=== PATIENT | female | born 1965 | race Caucasian/White ===

== ENCOUNTER 2018-06-26 11:23 | Emergency (ER) | END 2018-06-26 12:20 | disposition left against medical advice (07) ==

== ENCOUNTER 2019-01-03 08:26 | Emergency (ER) | payer SELFPAY ==
[~2019-01-03] VITALS: Ht 162.6 cm; Wt 71.2 kg
[~2019-01-03 08:26] MED LIST: BEN25 PO; CEPH-443 PO; HC30CR25 TOP
[2019-01-03 08:31] VITALS: Ht 162.6 cm; Wt 71.2 kg
[2019-01-03] MEDS ORDERED: ONDANSETRON 4 MG INJ IV STA (08:41)
[2019-01-03] MEDS ORDERED: morphine 4 MG/ML VIAL IV STA (08:41)
[2019-01-03] MEDS ORDERED: KETOROLAC 30 MG INJ IM STA (09:12)
[2019-01-03] MEDS ORDERED: IBUP-1542 PO (10:08)
[2019-01-03] MEDS ORDERED: NITR-58 PO (10:08)
[2019-01-03 10:44] VITALS: BP 119/85; PULSE 70; RESP 16
--- NOTE | 2019-01-03 13:06 | ERD ---
ER Documentation Chief Complaint Chief Complaint pt bib self with c/o back pain radiating to abd for a few days HPI Patient is a 53-year-old female with kidney stone who presents with lower back pain. The pain radiates to her pelvis. She has had this for the past 2 days. The pain comes and goes. The pain is worse with movement. She tried ibuprofen. She denies urinary symptoms. She has no fevers. Upon review of old medical records the patient one previous visit to the ER in 2018. She does not currently have a primary doctor. ROS All systems reviewed and are negative except as per history of present illness. Medications Home Meds Active Scripts Ibuprofen* (Motrin*) 600 Mg Tab, 600 MG PO Q6H PRN for PAIN AND OR ELEVATED TEMP, #30 TAB Prov:AYLIN PRUETT MD 01/03/19 Nitrofurantoin Monohyd Macrocr* (Macrobid*) 100 Mg Capsr, 100 MG PO BID for 7 Days, CAP Prov:AYLIN PRUETT MD 01/03/19 Diphenhydramine Hcl* (Benadryl*) 25 Mg Cap, 25 MG PO Q6, #30 CAP Prov:JESUS CASILLAS PA-C 06/26/18 Hydrocortisone* Topical (Hydrocortisone* Topical) 2.5%-28.3 Gm Cream..g., 1 APPLIC TOP BID, #1 TUB Prov:JESUS CASILLAS PA-C 06/26/18 Cephalexin* (Keflex*) 500 Mg Capsule, 500 MG PO QID for 7 Days, CAP Prov:JESUS CASILLAS PA-C 06/26/18 Allergies Allergies: Coded Allergies: No Known Allergy (Unverified , 01/03/19) PMhx/Soc History of Surgery: Yes () Anesthesia Reaction: No Hx Neurological Disorder: No Hx Respiratory Disorders: No Hx Cardiac Disorders: No Hx Psychiatric Problems: No Hx Miscellaneous Medical Probl: No Hx Alcohol Use: No Hx Substance Use: No Hx Tobacco Use: No Smoking Status: Never smoker FmHx Family History: diabetes Physical Exam Vitals Vital Signs Date Temp Pulse Resp B/P (MAP) Pulse Ox O2 O2 Flow FiO2 Time Delivery Rate 01/03/19 70 16 119/85 100 Room Air 10:44 (96) 01/03/19 97.8 71 18 142/87 100 08:31 (105) Physical Exam Const: No acute distress Head: Atraumatic Eyes: Normal Conjunctiva ENT: Normal External Ears, Nose and Mouth. Neck: Full range of motion. No meningismus. Resp: Clear to auscultation bilaterally Cardio: Regular rate and rhythm, no murmurs Abd: Soft, bilateral lower abdominal tenderness to palpation without rebound or guarding Skin: No petechiae or rashes Back: No midline or flank tenderness Ext: No cyanosis, or edema Neur: Awake and alert Psych: Normal Mood and Affect Result Diagram: 01/03/19 0901/03/19 09 Results 24 hrs Laboratory Tests Test 01/03/19 09:00 White Blood Count 5.5 10^3/ul Red Blood Count 4.96 10^6/ul Hemoglobin 14.9 g/dl Hematocrit 43.4 % Mean Corpuscular Volume 87.5 fl Mean Corpuscular Hemoglobin 30.0 pg Mean Corpuscular Hemoglobin Concent 34.3 g/dl Red Cell Distribution Width 11.5 % Platelet Count 201 10^3/UL Mean Platelet Volume 10.8 fl Immature Granulocytes % 0.400 % Neutrophils % 54.5 % Lymphocytes % 35.1 % Monocytes % 6.2 % Eosinophils % 2.9 % Basophils % 0.9 % Nucleated Red Blood Cells % 0.0 /100WBC Immature Granulocytes # 0.020 10^3/ul Neutrophils # 3.0 10^3/ul Lymphocytes # 1.9 10^3/ul Monocytes # 0.3 10^3/ul Eosinophils # 0.2 10^3/ul Basophils # 0.1 10^3/ul Nucleated Red Blood Cells # 0.0 10^3/ul Urine Color YELLOW Urine Clarity CLOUDY Urine pH 5.0 Urine Specific [place] 1.019 Urine Ketones NEGATIVE mg/dL Urine Nitrite NEGATIVE mg/dL Urine Bilirubin NEGATIVE mg/dL Urine Urobilinogen NEGATIVE mg/dL Urine Leukocyte Esterase 1+ [place]mit[place]/ul Urine Microscopic RBC 5 /HPF Urine Microscopic WBC 19 /HPF Urine Squamous Epithelial Cells MANY /HPF Urine Bacteria FEW /HPF Urine Mucus FEW /HPF Urine Hemoglobin NEGATIVE mg/dL Urine Glucose NEGATIVE mg/dL Urine Total Protein NEGATIVE mg/dl Sodium Level 143 mmol/L Potassium Level 4.1 mmol/L Chloride Level 107 mmol/L Carbon Dioxide Level 26 mmol/L Anion Gap 10 Blood Urea Nitrogen 17 mg/dl Creatinine 0.95 mg/dl Est Glomerular Filtrat Rate mL/min > 60 mL/min Glucose Level 99 mg/dl Calcium Level 10.0 mg/dl Total Bilirubin 0.4 mg/dl Direct Bilirubin 0.00 mg/dl Indirect Bilirubin 0.4 mg/dl Aspartate Amino Transf (AST/SGOT) 31 IU/L Alanine Aminotransferase (ALT/SGPT) 37 IU/L Alkaline Phosphatase 64 IU/L Total Protein 7.9 g/dl Albumin 4.5 g/dl Globulin 3.40 g/dl Albumin/Globulin Ratio 1.32 Lipase 84 U/L Current Medications Medications Dose Sig/Jimena Start Time Status Last (Trade) Ordered Route PRN Stop Time Admin Dose Reason Admin Morphine 4 mg ONCE STAT 01/03/19 DC Sulfate IV 08:41 (morphine) 01/03/19 08:42 Ondansetron 4 mg ONCE STAT 01/03/19 DC 01/03/19 HCl (Zofran IV 08:41 09:12 Inj) 01/03/19 08:42 Ketorolac 30 mg ONCE STAT 01/03/19 DC 01/03/19 Tromethamine IM 09:12 09:19 (Toradol) 01/03/19 09:13 Procedures/MDM CT abdomen pelvis read by radiology. Patient is a 53-year-old female who presents with abdominal pain. She was found to have acute cystitis. Other laboratory studies were basically normal. CT scan shows no sign of surgical process at this time. The patient was treated and feels better. She will be treated with antibiotics for 1 week. She can f ollow-up with the local clinics within 24-48 hours for reevaluation. At this point I doubt appendicitis, cholecystitis, pancreatitis, or bowel obstruction. Departure Diagnosis: Primary Impression: Cystitis Additional Impression: Abdominal pain Abdominal location: lower abdomen, unspecified Qualified Codes: R10.30 - Lower abdominal pain, unspecified Condition: Fair Patient Instructions: Abdominal Pain, Cystitis [facility] Usted se freedman hecho un examen mdico de control que le indica que no est en estevan condicin que requiera tratamiento urgente en el Departamento de Emergencia. Un estudio ms profundo y el tratamiento de guzman condicin pueden esperar sin ningn riesgo hasta que usted sea atendida/o en el consultorio de guzman mdico o estevan clnica. Es responsabilidad suya arreglar estevan nancy para el seguimiento del kathryn. MANEJO DE CONDICIONES NO URGENTES EN EL FUTURO 1) Si usted tiene un mdico de atencin primaria: Usted debera llamar a guzman mdico de atencin primaria antes de venir al departamento de emergencia. Despus de las horas de consultorio, guzman doctor o guzman asociado/a est disponible por telfono. El mdico o enfermero de demian en el servicio telefnico puede asesorarle por mayte medio para atender el problema, o kathryn contrario se puede programar estevan nancy. 2) Si usted no tiene un mdico de atencin primaria: Llame al mdico o clnica de referencia que aparece abajo lorri las horas de consultorio para hacer estevan nancy para que le vean. CLINICAS: [facility] [phone] [facility] [phone] [id number] [facility]. [facility] [phone] [address] [facility]. [place] [address] [phone] [facility]. [place] [phone] [facility]. [phone] [address] Additional Instructions: Llame al doctor MAANA y gisele estevan NANCY PARA DENTRO DE 1-2 SCHRADER.Dgale a la secretaria que nosotros le instruimos hacer esta nancy.Avise o llame si guzman condicin se empeora antes de la nancy. Regresa aqui si peor o no mejor. AYLIN PRUETT MD Jan 03, 2019 13:06
== END 2019-01-03 10:47 | disposition home or self-care (01) ==
LOC: E/R 08:26
DX: N30.90 Cystitis, unspecified without hematuria (principal)
CPT/HCPCS: 36415; 74176; 80053; 81001; 83690; 85025; 96372; 96374; 99285; J1885; J2405; J2270